=== PATIENT | female | born 1955 | race Two or more races ===

== ENCOUNTER 2021-08-23 14:32 | Inpatient (IN) | payer OTHER ==
[~2021-08-23] VITALS: Ht 157.5 cm; Wt 98.5 kg
[2021-08-23] MEDS ORDERED: niCARdipine 25 MG/10 ML VIAL IV ONE (14:39)
[2021-08-23] MEDS ORDERED: ANGIOMAX 250 MG VIAL IV ONE ×2 (14:39→16:06)
[2021-08-23] MEDS ORDERED: fentaNYL CITRATE 100 MCG/2 ML VL ONE ×2 (14:39→16:06)
[2021-08-23] MEDS ORDERED: ADENOSINE 6 MG/2 ML INJ IV ONE (14:40)
[2021-08-23] MEDS ORDERED: SODIUM CHL 0.9% 0 ML ONE (14:40)
[2021-08-23] MEDS ORDERED: MIDAZOLAM HCL 2MG/2ML 2ml VIAL (1mg/ml) ONE ×2 (14:40→16:07)
[2021-08-23] MEDS ORDERED: EPINEPHrine HCL 1 MG/10 ML SYRG ONE (14:46)
[2021-08-23] MEDS ORDERED: HEPARIN SODIUM (PORCINE) 5000 UNITS/ML 1ML VIAL IV ONE ×2 (15:00→16:15)
[2021-08-23] MEDS ORDERED: NITROGLYCERIN 0.4 MG SL TAB SL ONE (15:00)
[2021-08-23] MEDS ORDERED: HEPARIN DRIP/D5W 100UNITS/ML 250 ML IV SCH (15:00)
[2021-08-23] MEDS ORDERED: SODIUM CHLORIDE 0.9% 1,000 ML IV ONE (15:00)
[2021-08-23 15:11] LABS: Basophils # (auto) 0 10 ^3/uL (0-0.2); Basophils % (auto) 0.5 % (0.0-2.0); Eosinophils # (auto) 0 10 ^3/uL (0-0.8); Eosinophils % (auto) 0.2 % (0.0-7.0); Hematocrit 39.6 % (36.0-46.0); Hemoglobin 13.5 g/dL (12.2-16.2); Lymphocytes # (auto) 1.7 10 ^3/uL (0.4-5.4); Lymphocytes % (auto) 17.4 % (10.0-50.0); Mean Corpuscular Hemoglobin 30.4 pg (28.0-32.0); Mean Corpuscular Hgb Conc. 34.1 g/dL (32.0-36.0); Mean Corpuscular Volume 89.3 fL (80.0-100.0); Monocytes # (auto) 0.7 10 ^3/uL (0-1.3); Monocytes % (auto) 7.1 % (0.0-12.0); Neutrophils # (auto) 7.2 10 ^3/uL (1.6-8.6); Neutrophils % (auto) 74.8 % (37.0-80.0); Nucleated Red Blood Cells % 0.1 %; Red Blood Cells 4.43 10^6/uL (4.0-5.20); Red Cell Distribution Width 13.6 % (11.8-14.3); White Blood Cell 9.6 10^3/uL (4.4-10.8)
[2021-08-23 15:27] LABS: Albumin 3.6 g/dL (3.4-5.0); Calcium 9.5 mg/dL (8.5-10.1); INR 0.99 (0.9-1.15); Partial Thromboplastin Time 27.6 sec (23.6-33.0); Potassium 4.5 mmol/L (3.5-5.1)
[2021-08-23 15:31] LABS: BUN/Creatinine Ratio 25.3; Bilirubin, Total 0.6 mg/dL (0.2-1.0)
[2021-08-23] MEDS ORDERED: VERAPAMIL 2.5MG/ML INJ 2ML VIAL IV ONE (16:06)
[2021-08-23] MEDS ORDERED: HEPARIN SODIUM (PORCINE) 5000 UNITS/ML 1ML VIAL ONE (16:06)
[2021-08-23] MEDS ORDERED: IODIXANOL 320MG/ML 100ML BTL IV ONE ×2 (16:07→17:09)
[2021-08-23] MEDS ORDERED: SODIUM CHL 0.9% 50 ML ONE (16:07)
[2021-08-23] MEDS ORDERED: LIDOCAINE 2%HCL (LOCAL ANESTH.) INJ 10ml MDV ONE (16:07)
[2021-08-23] MEDS: ACCU-CHEK COMFORT CURVE STRIP VI SCH ×2 (17:00→22:26)
[2021-08-23] MEDS: InsuLIN REG 1unit/0.01ml Soln (100units/ml) SC SCH ×2 (17:00→22:27)
[2021-08-23] MEDS ORDERED: DEXTROSE (50%) 50ML SYRG IV PRN (17:00)
[2021-08-23] MEDS ORDERED: NITROGLYCERIN 0.4 MG SL TAB SL PRN (17:00)
[2021-08-23] MEDS ORDERED: MORPHINE SULFATE INJ 2 MG/ml SYRG IV PRN (17:00)
[2021-08-23] MEDS ORDERED: EPTIFIBATIDE INJ (2MG/ML) 10ML VIAL IV ONE (17:07)
[2021-08-23] MEDS ORDERED: ATROPINE SULF 1 MG/10ml SYR ONE (17:08)
[2021-08-23] MEDS ORDERED: TICAGRELOR 90 MG TAB ONE (17:13)
[2021-08-23] MEDS ORDERED: ATORVASTATIN 20 MG TAB PO SCH (18:00)
[2021-08-23 20:00] VITALS: BP 125/47
[2021-08-23 20:08] VITALS: BP 125/47
[2021-08-23 21:00] VITALS: BP 141/77
[2021-08-23 22:00] VITALS: BP 113/62
[2021-08-23 23:00] VITALS: BP 137/72
[2021-08-23] MEDS ORDERED: AMLO-489 PO (23:44)
[2021-08-23] MEDS ORDERED: LISI-716 PO (23:44)
[2021-08-23] MEDS ORDERED: ATOR20TA50 PO (23:44)
[2021-08-23] MEDS ORDERED: METF-370 PO (23:44)
[2021-08-23] MEDS ORDERED: GLIP10TA9 PO (23:44)
[2021-08-24] VITALS (13 sets, daily range): BP systolic 116–154; BP diastolic 64–103
[2021-08-24] MEDS: ACCU-CHEK COMFORT CURVE STRIP VI SCH ×4 (06:16→21:58)
[2021-08-24] MEDS: InsuLIN REG 1unit/0.01ml Soln (100units/ml) SC SCH ×4 (06:16→22:03)
[2021-08-24] MEDS: TICAGRELOR 90 MG TAB PO SCH ×3 (06:36→21:58)
[2021-08-24] MEDS ORDERED: HYDROcodone-ACET 5/325MG TAB PO PRN (08:00)
[2021-08-24] MEDS ORDERED: MORPHINE SULFATE INJ 2 MG/ml SYRG IV PRN (08:00)
[2021-08-24] MEDS ORDERED: hydrALAZINE HCL 20 MG/ML VL IV PRN (08:00)
[2021-08-24] MEDS ORDERED: LORazepam 0.5 MG TAB PO PRN (08:00)
[2021-08-24] MEDS ORDERED: ACETAMINOPHEN 325 MG TAB PO PRN (08:00)
[2021-08-24] MEDS ORDERED: DOCUSATE SOD 100 MG CAP PO PRN (08:00)
[2021-08-24] MEDS ORDERED: ONDANSETRON HCL 4 MG/2 ML VIAL IV PRN (08:00)
[2021-08-24] MEDS ORDERED: PANTOPRAZOLE 40 MG/10 ML VIAL INJ IV ONE (08:00)
[2021-08-24 09:15] LABS: Basophils # (auto) 0 10 ^3/uL (0-0.2); Basophils % (auto) 0.3 % (0.0-2.0); Eosinophils # (auto) 0 10 ^3/uL (0-0.8); Eosinophils % (auto) 0.5 % (0.0-7.0); Hemoglobin 12.3 g/dL (12.2-16.2); Lymphocytes # (auto) 1.6 10 ^3/uL (0.4-5.4); Lymphocytes % (auto) 17.3 % (10.0-50.0); Mean Corpuscular Hemoglobin 30.8 pg (28.0-32.0); Mean Corpuscular Hgb Conc. 34.4 g/dL (32.0-36.0); Mean Corpuscular Volume 89.6 fL (80.0-100.0); Monocytes # (auto) 1.1 10 ^3/uL (0-1.3); Monocytes % (auto) 11.5 % (0.0-12.0); Neutrophils # (auto) 6.5 10 ^3/uL (1.6-8.6); Neutrophils % (auto) 70.4 % (37.0-80.0); Red Blood Cells 3.97 10^6/uL (4.0-5.20); Red Cell Distribution Width 13.9 % (11.8-14.3); White Blood Cell 9.2 10^3/uL (4.4-10.8)
[2021-08-24 09:21] LABS: Hematocrit 35.6 % (36.0-46.0)
[2021-08-24] MEDS: ATORVASTATIN 20 MG TAB PO SCH (09:39)
[2021-08-24 09:42] LABS: INR 0.99 (0.9-1.15); Partial Thromboplastin Time 29.6 sec (23.6-33.0)
[2021-08-24] MEDS: ASPirin 81 mg TAB PO SCH ×2 (09:42→10:00)
[2021-08-24 09:48] LABS: Magnesium 2.1 mg/dL (1.6-2.6); Potassium 3.9 mmol/L (3.5-5.1)
[2021-08-24] MEDS ORDERED: FAMOTIDINE (10MG/ML) 2ML VL IV SCH (10:00)
[2021-08-24] MEDS ORDERED: ENOXAPARIN SOD 40 MG/0.4 ML SYRINGE SC SCH (10:00)
[2021-08-24] MEDS ORDERED: PANTOPRAZOLE 40 MG/10 ML VIAL INJ IV SCH (10:00)
[2021-08-24 10:05] LABS: Thyroid Stimulating Hormone 1.26 uIU/mL (0.358-3.74)
[2021-08-24 10:07] LABS: BUN/Creatinine Ratio 32.8; Bilirubin, Total 0.9 mg/dL (0.2-1.0); CRP High Sensitivity 3.32 mg/dL (< 0.3); Calcium 9.2 mg/dL (8.5-10.1); Phosphorus 2.6 mg/dL (2.5-4.90); Total Protein 6.6 g/dL (6.4-8.2); Uric Acid 5.9 mg/dL (2.6-6.0)
[2021-08-24 15:51] LABS: Urine Bacteria FEW /hpf (None Seen); Urine Blood Negative /uL (Negative); Urine Specific Gravity 1.029 (1.001-1.035); Urine WBC 4 /hpf (0 - 5)
[2021-08-24 15:55] LABS: Alcohol, Urine < 3.0 mg/dL (0-10); Amphetamine Screen, Urine NEGATIVE (NEGATIVE); Barbiturate Scree,Urine NEGATIVE (NEGATIVE); Benzodiazephine Screen, Urine POSITIVE (NEGATIVE); Cannabinoid Screen, Urine NEGATIVE (NEGATIVE); Cocaine Screen, Urine NEGATIVE (NEGATIVE); Opiate Scree,Urine NEGATIVE (NEGATIVE); Phencyclidine Screen, Urine NEGATIVE (NEGATIVE); Protein, Urine 10.8 mg/dL (0.0-11.9)
[2021-08-25 04:54] VITALS: BP 104/59
[2021-08-25] MEDS: ACCU-CHEK COMFORT CURVE STRIP VI SCH ×2 (06:36→11:30)
[2021-08-25] MEDS: InsuLIN REG 1unit/0.01ml Soln (100units/ml) SC SCH ×2 (06:38→11:30)
[2021-08-25 08:30] VITALS: BP 128/69
[2021-08-25] MEDS ORDERED: ASPI1CHW15 PO (09:44)
[2021-08-25] MEDS ORDERED: CLOP75TA28 PO (09:44)
[2021-08-25] MEDS ORDERED: CLOPIDOGREL 300 MG TAB PO ONE (09:45)
[2021-08-25] MEDS: ASPirin 81 mg TAB PO SCH (10:45)
[2021-08-25] MEDS: ATORVASTATIN 20 MG TAB PO SCH (10:46)
[2021-08-25 12:30] VITALS: BP 130/60
[2021-08-25 14:03] VITALS: BP 158/88
== END 2021-08-25 14:37 | disposition home or self-care (01) | DRG 246 ==
LOC: ER 14:32 → EDBD 14:32 → UNDOADMIN 16:58 → TELE 16:58 → DOU IN ICU 20:08 → TELE-CENTR 08-24 10:53
PROVIDERS: ADMIT Internal Medicine; ATTEND Internal Medicine
PROC: 4A023N7 Measurement of Cardiac Sampling and Pressure, Left Heart, Percutaneous Approach (ICD-10-PCS; principal; 2021-08-23)
PROC: 027034Z Dilation of Coronary Artery, One Artery with Drug-eluting Intraluminal Device, Percutaneous Approach (ICD-10-PCS; 2021-08-23)
PROC: B211YZZ Fluoroscopy of Multiple Coronary Arteries using Other Contrast (ICD-10-PCS; 2021-08-23)
DX: I21.4 Non-ST elevation (NSTEMI) myocardial infarction (principal); I50.23 Acute on chronic systolic (congestive) heart failure; E11.9 Type 2 diabetes mellitus without complications; E66.9 Obesity, unspecified; E78.5 Hyperlipidemia, unspecified; K76.0 Fatty (change of) liver, not elsewhere classified; I10 Essential (primary) hypertension; Z20.822 Contact with and (suspected) exposure to COVID-19; I25.10 Atherosclerotic heart disease of native coronary artery without angina pectoris; Z79.82 Long term (current) use of aspirin; Z79.02 Long term (current) use of antithrombotics/antiplatelets
CPT/HCPCS: 36415; 71045; 80053; 80061; 80307; 81001; 82550; 82728; 82962; 83036; 83615; 83690; 83735; 83880; 84100; 84156; 84443; 84484; 84550; 85025; 85379; 85610; 85652; 85730; 86141; 87040; 87081; 87086; 92928; 93005; 93306; 93458; 99152; 99153; 99291; C1874; C1887; C9113; G0378; J0153; J1815; J2001; J2250; Q9967